=== PATIENT | female | born 1980 | race Caucasian/White ===

== ENCOUNTER 2024-08-29 13:01 | Emergency (ER) | payer SELFPAY ==
[~2024-08-29] VITALS: Ht 160 cm; Wt 89.0 kg
[2024-08-29 13:14] VITALS: PULSE 88; RESP 18; TEMP 96.3; O2SAT 98
[2024-08-29] MEDS ORDERED: CYCLOBENZAPRINE5 MG PO (14:19)
[2024-08-29] MEDS: KETOROLAC TROMETHAMINE 60 MG/2 ML VIAL IM ONE (14:29)
== END 2024-08-29 14:41 | disposition home or self-care (01) ==
LOC: FSED 13:26
DX: M54.31 Sciatica, right side (principal); F17.210 Nicotine dependence, cigarettes, uncomplicated
CPT/HCPCS: 81003; 81025; 99283; J1885

== ENCOUNTER 2024-11-08 16:01 | Emergency (ER) | payer SELFPAY ==
[~2024-11-08] VITALS: Ht 160 cm; Wt 93.5 kg
[~2024-11-08 16:01] MED LIST: CYCLOBENZAPRINE5 MG PO
[2024-11-08 16:05] VITALS: PULSE 76; RESP 20; TEMP 98; O2SAT 99
[2024-11-08] MEDS: TETANUS/DIPHTHERIA TOX ADULT 0.5 ML SYR IM ONE (16:23)
[2024-11-08] MEDS: TRAMADOL HCL 50 MG TAB PO ONE (16:24)
[2024-11-08] MEDS: IBUPROFEN 600 MG TAB PO STA (16:24)
[2024-11-08] MEDS ORDERED: AUGMENTIN 500-1 EACH PO (16:46)
[2024-11-08] MEDS: BACITRACIN ZINC 0.9GM TP ONE (17:21)
== END 2024-11-08 17:20 | disposition home or self-care (01) ==
LOC: FSED 16:03
DX: M79.672 Pain in left foot (principal); S91.342A Puncture wound with foreign body, left foot, initial encounter; W45.8XXA Other foreign body or object entering through skin, initial encounter; Y93.01 Activity, walking, marching and hiking; Y92.89 Other specified places as the place of occurrence of the external cause
CPT/HCPCS: 90471; 90714; 99284